=== PATIENT | female | born 1975 | race Caucasian/White ===

== ENCOUNTER 2023-04-29 14:19 | Outpatient (CLI) | payer BC, SELFPAY ==
--- NOTE | 2023-04-29 14:29 | MM_ITS ---
WS: [id number] VIEWS: MLO and CC views both breasts. 3D digital tomosynthesis is also included in this exam. No priors. Findings: There was no sign of mass, architectural distortion or suspicious calcification in either breast. Sc attered areas of fibroglandular density MM/[id number] Impression: BI-RADS: 2 benign finding FOLLOW-UP: 1 Year Follow-up This mammogram was also analyzed by the Computer Aided Detection System R2 Imag e Batch Freezer.
== END 2023-04-29 14:20 | disposition home or self-care (01) ==
LOC: RAD 14:26
PROVIDERS: PCP Family Medicine; Visit Provider Family Medicine
DX: Z12.31 Encounter for screening mammogram for malignant neoplasm of breast (principal)
CPT/HCPCS: 77063; 77067

== ENCOUNTER → 2023-12-23 15:35 | Outpatient (BNVA) | payer BC, SELFPAY | PROVIDERS: PCP Family Medicine; Referring Provider Family Medicine; Visit Provider Nurse Practitioner Women's Health | DX: N93.9 Abnormal uterine and vaginal bleeding, unspecified (principal); D25.9 Leiomyoma of uterus, unspecified; D25.0 Submucous leiomyoma of uterus | CPT/HCPCS: 85025; 88305 ==

== ENCOUNTER → 2024-01-17 13:29 | Outpatient (BNVA) | payer BC, SELFPAY | PROVIDERS: PCP Family Medicine; Visit Provider Nurse Practitioner Women's Health | DX: N93.9 Abnormal uterine and vaginal bleeding, unspecified (principal); D25.9 Leiomyoma of uterus, unspecified | CPT/HCPCS: 76830 ==

== ENCOUNTER → 2024-01-20 15:30 | Outpatient (BNVA) | payer BC, SELFPAY | PROVIDERS: PCP Family Medicine; Visit Provider Nurse Practitioner Women's Health | DX: N93.9 Abnormal uterine and vaginal bleeding, unspecified (principal) | CPT/HCPCS: 87086; 87624 ==

== ENCOUNTER 2024-05-01 08:18 | Outpatient (CLI) | payer BC, SELFPAY ==
--- NOTE | 2024-05-01 08:21 | MM_ITS ---
WS: [id number] BILATERAL SCREENING DIGITAL TOMOSYNTHESIS MAMMOGRAM WITH CAD HISTORY: SCREENING COMPARISON: 04/29/2023 Bilateral CC and MLO views with tomosynthesis and synthetic mammography submitted. Computer aided det ection analyzed. Breast composition: There are scattered areas of fibroglandular density. No suspicious masses, microc alcifications or architectural distortion. MM/[id number] IMPRESSION: BI-RADS: 1-Negative FOLLOW UP: 1 Year Follow-up
== END 2024-05-01 08:19 | disposition home or self-care (01) ==
LOC: RAD 08:18
PROVIDERS: PCP Family Medicine; Visit Provider Family Medicine
DX: Z12.31 Encounter for screening mammogram for malignant neoplasm of breast (principal); R92.323 Mammographic fibroglandular density, bilateral breasts
CPT/HCPCS: 77063; 77067

== ENCOUNTER 2024-05-23 11:12 | Observation (INO) | payer BC, SELFPAY ==
[2024-05-15 11:25] LABS: OR HCG Qualitative Urine Negative (Negative)
[2024-05-15 11:25] LABS: Basophils # 0.1 10^3/uL (0.0-0.1); Basophils % 1.3 %; Eosinophils # 0.1 10^3/uL (0.0-0.8); Eosinophils % 1.9 %; Hematocrit 41.4 % (36-47); Lymphocytes # 1.6 10^3/uL (0.8-4.8); Lymphocytes % 29.7 %; Mean Corpuscular HGB Conc 32.6 g/dL (30-55); Mean Corpuscular Hemoglobin 29.7 pg (27-33); Mean Platelet Volume 10.2 fL (7.4-10.4); Monocytes # 0.2 10^3/uL (0.2-0.9); Monocytes % 3.5 %; Neutrophils # 3.42 10^3/uL (1.8-7.7); Neutrophils % 63.4 %; Nucleated Red Blood Cells % 0 %; Platelet Count 260 10^3/cmm (157-399); Red Blood Count 4.55 10^6/uL (3.85-5.65); Red Cell Distribution Width 12.8 % (12.1-15.1); White Blood Count 5.39 10^3/uL (3.29-11.43)
[2024-05-15 11:44] LABS: Alanine Aminotransferase 12 U/L (0-33); Albumin Level 4.2 g/dL (3.5-5.2); Alkaline Phosphatase 51 U/L (35-105); Anion Gap 13.2 (5-19); Aspartate Amino Transferase 13 U/L (0-32); Blood Urea Nitrogen 11 mg/dL (6-20); Calcium 9.3 mg/dL (8.5-10.5); Carbon Dioxide 22 mmol/L (22-29); Chloride 110 mmol/L (98-107); Globulin 2.6 g/dL (1.3-4.6); Glomerular Filtration Rate 88.2 mL/min (90-130); Glucose 103 mg/dL (65-115); Osmolality Calculated 292 mOsm/kg (285-295); Potassium 4.2 mmol/L (3.5-5.1); Sodium 141 mmol/L (136-145); Total Bilirubin 0.3 mg/dL (0.15-1.2); Total Protein 6.8 g/dL (6.6-8.7)
[2024-05-15 11:52] LABS: Blood Urine 3+ (Negative); Glucose Urine UA Norm (Normal); Ketones Urine Negative (Negative); Nitrate Urine Negative (Negative); Protein Urine 1+ (Negative); Urine Appearance Cloudy (CLEAR); Urine Color Yellow (Yellow); pH Urine 7 (5-7)
[2024-05-15 11:53] LABS: Add Urine Culture? No; Add Urine Microscopic? YES; Bacteria Urine 2+ /hpf; Bilirubin Urine Neg (Negative); Leukocyte Esterase Urine 2+ (Negative); RBC Urine 25-40 /hpf (0-2); Squamous Epithelial Cell Urine 15-25 /hpf (0-5); Urobilinogen Urine Norm (Negative); WBC Urine 15-25 /hpf (0-5)
[2024-05-23] VITALS (15 sets, daily range): BP systolic 110–151; BP diastolic 63–92; PULSE 50–68; RESP 12–18; TEMP 36.2–37.1; O2SAT 96–100; BMI 33.8
--- NOTE | 2024-05-23 09:33 | W.PM.OPSUD ---
Surgery/Procedure H&P Update DATE OF PROCEDURE: May 23, 2024 DATE H&P PERFORMED: 05/15/24 H&P UPDATE INFORMATION: I have reviewed H&P completed within last 30 days, I have examined patient prior to procedure and No changes to prior documentation PREOP DIAGNOSIS: AUB, Uterine fibroids, Dysmenorrhea, pelvic pain PLANNED PROCEDURE: Operation Date: 05/23/24 10:25 Proposed Procedures p Total Vaginal Hysterectomy 70750, N93.9, D25.0(Not Applicable) - Daniele Singh MD
[2024-05-23] MEDS: scopolamine 1.5 Patch 1 PATCH TRANSDERMA (09:42)
[2024-05-23] MEDS: sodium chloride 0.9% 1,000 ML 30 ML IV (09:42)
[2024-05-23] MEDS: ceFOXitin 2,000 MG in sodium chloride 0.9% (plus) 50 ML 100 MG IV (09:56)
--- NOTE | 2024-05-23 09:58 | P.ANESASSM_ITS ---
Pre-Anesthetic Assessment Height/Weight: Height 1.6 m Weight 86.636 kg Temp Pulse Resp BP Pulse Ox O2 Del Method 98.7 F 60 18 151/92 99 Room Air 05/23/24 09:32 05/23/24 09:32 05/23/24 09:32 05/23/24 09:32 05/23/24 09:32 05/23/24 09:34 Preop Diagnosis: AUB, Uterine fibroids, Dysmenorrhea, pelvic pain Operation Date: 05/23/24 10:25 Proposed Procedures p Total Vaginal Hysterectomy 37820, N93.9, D25.0(Not Applicable) - Daniele Singh MD Familial anesthetic complications: None Was Beta Leti taken within 24 hours: N/A Was Clonidine taken within 24 hours: N/A Last intake: Intake Last Liquid Date 05/22/24 Last Liquid Time 20:00 Last Solid Date 05/22/24 Last Solid Time 17:00 Social No alcohol and No tobacco Exam alert, oriented x 3, clear to auscultation bilaterally and regular rate & rhythm Airway Mallampati: Class II Dentition: full Anesthetic Plan ASA status: 1 Anesthesia: General Risk of > 500 ml blood loss (7ml/kg in children): No Medications/Allergies Home Medications Medication Instructions Recorded Confirmed Last Taken Type ehpwurw-ljaicwdrz-zscj tablet 1 tab PO DAILY 12/23/23 05/15/24 05/22/24 History cetirizine 10 mg tablet (24Hour 10 mg PO DAILY PRN allergies 12/23/23 05/15/24 05/22/24 History Allergy) cholecalciferol (vitamin D3) 125 125 mcg PO DAILY 12/23/23 05/15/24 05/22/24 History mcg (5,000 unit) capsule multivitamin 1 tab PO DAILY 12/23/23 05/15/24 05/22/24 History psyllium husk 0.4 gram capsule 0.4 g PO DAILY 12/23/23 05/15/24 05/22/24 History (Fiber (psyllium husk)) ibuprofen 800 mg tablet 800 mg PO TID abnormal uterine 02/11/24 05/23/24 05/20/24 Rx bleeding #90 tabs norethindrone acetate 5 mg tablet 5 mg PO DAILY #60 tabs 03/14/24 05/15/24 05/20/24 Rx Allergies Allergy/AdvReac Type Severity Reaction Status Date / Time No Known Allergies Allergy Verified 05/23/24 09:15 Current Medications Generic Name Dose Route Start Last Admin Trade Name Teresa PRN Reason Stop Dose Admin Sodium Chloride 1,000 mls @ 30 mls/hr 05/23/24 09:00 05/23/24 09:42 Sodium Chloride 0.9% IV 05/24/24 08:59 30 mls/hr .Q24H KORINA Administration PFSH Anesthesia Medical History No pertinent past medical history neghx: htn,dm,thyroid,dvt/pe PCP: Dr. Frederick Surgical History History of cholecystectomy (~2001) Family History Father Heart disease Mother Hypertension Grandmother Thyroid disease Denies family history of Colon cancer Ovarian cancer Prostate cancer Diabetes Hyperlipidemia Breast cancer Uterine cancer Stroke Female Reproductive History Date of last menstrual period: 05/12/24 Data Anesthesia 05/15/24 11:10 05/15/24 11:10 Cardiac Studies: 2 No Data to Display
[2024-05-23 10:06] LABS: OR HCG Qualitative Urine Negative (Negative)
[2024-05-23] MEDS: lidocaine-epi 2% PF 1:200,000 20 mL SDV XX (10:41)
--- NOTE | 2024-05-23 11:12 | P.OP_ITS ---
Operative Report Date of procedure: May 23, 2024 Pre-op diagnosis: Abnormal uterine bleeding Uterine fibroid Dysmenorrhea Post-op diagnosis: same Procedure done: Total vaginal hysterectomy Specimens removed/disposition: Uterus Surgeon: Daniele Singh MD Estimated blood loss (mL): 20 IV fluids (mL): 700 Urine output (mL): 50 Complications: None Procedure: After informed consent and risks, benefits, indications and alternatives reviewed with the patient was taken to the operating room. The patient was placed in dorsal lithotomy position prepped, and draped in the usual sterile fashion. The pre-procedure timeout verifying the correct patient, procedure, site and side, could not requirements was performed and acknowledge by the OR t eam. A Miranda catheter was placed. A Bookwalter vaginal retractor was placed into the vagina in usual manner visualize the cervix. Cervix was grasped with a single tooth tenaculum and circumferentially infiltrated with 2% lidocaine with epinephrine. Then cervix was circumferentially incised with bovie and the bladder was dissected off the pubovesical cervical fascia anteriorly with a sponge stick and Metzenbaum scissors. The anterior peritoneal reflection was identified and the anterior cul-de-sac was entered sharply with Metzenbaum scissors. The same procedure was performed posteriorly and a posterior colpotomy was made through the posterior cul-de-sac space without difficulty and the posterior blade of the Bookwalter vaginal retractor was advanced posteriorly into the cul-de-sac. At this time, the left and right uterosacral ligaments were isolated and ligated with 0 Vicryl. The LigaSure device was placed over the uterosacral ligaments on either side and was then used in a serial fashion up through the cardinal ligaments bilaterally cross-clamped, cut, and sealed with the LigaSure device. Finally, the uterine arteries were cross-clamped, cut, sealed and ligated with the LigaSure device. Hemostasis was assured. The broad ligaments were then serially clamped, sealed and cut with the LigaSure device on both sides. Excellent hemostasis was visualized. Both cornua were clamped, sealed and cut with the LigaSure device. Then the pedicles were then suture ligated with excellent hemostasis. The uterus was excised and submitted for pathologic evaluation. No other abnormal ities were noted in the pelvic cavity. The peritoneum was then closed in a pursestring fashion with 0 Vicryl suture. The vaginal cuff angles were closed with [id number] #0 Vicryl suture on bot h sides and transfixed with the ipsilateral cardinal and uterosacral ligaments. The remainder of the vaginal cuff was closed with #0 Vicryl in a running locked fashion. Bludigo was given IV At this time, instruments were removed from the vagina at hemostasis assured. The patient was taken out of dorsal lithotomy position and awakened from the general anesthesia. The patient tolerated the procedure well and was taken to the PACU recovery room in a stable condition. Sponge, lap, needle and instruments counts were correct x3.
--- NOTE | 2024-05-23 11:19 | PC.NURSE ---
anesthesia at side to medicate
--- NOTE | 2024-05-23 11:45 | ANE.PACU2 ---
Inpatient post-anesthesia follow up: Airway intact: Yes Vital signs: Temperature 97.4 F Pulse Rate 52 Respiratory Rate 12 Blood Pressure 130/80 Pulse Oximetry 100 Oxygen Delivery Me thod Room Air Oxygen Flow Rate Fraction of Inspir ed Oxygen Hydration adequate: Yes Nausea and vomiting: No Pain level: 1 Mental status: Baseline
[2024-05-23] MEDS: dextrose 5%-lactated ringers 1,000 ML 125 ML IV (13:20)
[2024-05-23] MEDS: acetaminophen 325 mg Tablet 650 MG PO (15:35)
[2024-05-23] MEDS: docusate sodium 100 mg Capsule PO (17:21)
[2024-05-23] MEDS: ketorolac 30 mg/mL INJ IVP ×2 (17:21→22:58)
[2024-05-23] MEDS: HYDROcodone-acetaminophen 5-325 mg Tablet PO (21:16)
[2024-05-24] MEDS: dextrose 5%-lactated ringers 1,000 ML 125 ML IV (00:59)
[2024-05-24 04:00] VITALS: BP 113/72; PULSE 50; RESP 16; TEMP 36.9; O2SAT 98
[2024-05-24] MEDS: ketorolac 30 mg/mL INJ IVP (05:09)
[2024-05-24 06:13] LABS: Hematocrit 35.6 % (36-47); Mean Corpuscular HGB Conc 32.6 g/dL (30-55); Mean Corpuscular Hemoglobin 30.1 pg (27-33); Mean Corpuscular Volume 92.5 fl (85-98); Mean Platelet Volume 10.1 fL (7.4-10.4); Platelet Count 210 10^3/cmm (157-399); Red Blood Count 3.85 10^6/uL (3.85-5.65); Red Cell Distribution Width 13.1 % (12.1-15.1); White Blood Count 9.76 10^3/uL (3.29-11.43)
--- NOTE | 2024-05-24 08:22 | P.DS_ITS ---
Discharge Providers [employer] Date of Admission: 05/23/24 11:12 Date of Discharge: 05/24/24 Attending Provider at Admission: Daniele Singh MD Attending Provider at Discharge: Daniele Singh MD Primary Care Provider: Regla Frederick MD Reason for Visit Reason for Visit: N93.9 Hospital Course Hospital Course Mrs. Jaramillo 49-year-old female with a history of abnormal uterine bleeding, uterine fibroid, and dysmenorrhea, admitted for planned total vaginal hysterectomy. The procedure was performed without complications. Overnight observation was uneventful. She is afebrile hemodynamically stable postoperative day 1. Tolerating diet well. Ambulating without difficulty. She was counseled regarding pelvic rest for 6 weeks (no sex, no tampons, no vaginal douches). Return to the emergency room if any fever, increased bleeding or pain. Physical Exam Narrative: GA: Alert and oriented ?3. HEENT: WNL. Heart: Regular rate and rhythm. Lungs: Clear to auscultation bilaterally. Abdomen: Bowel sounds present. SUBGRADE TESTER: Spotting bleeding. Extremities: No edema, no cyanosis, no calves pain. Urinary Catheter Management: Miranda: Cath Placed During This Visit: yes, but has since been removed by the nurse Reason for Continuing Indwelling Catheter: Decision to DC Catheter Urinary Catheter Date of Insertion: 05/23/24 Urinary Catheter Time of Insertion: 10:26 Date Urinary Catheter Removed: 05/24/24 Time Urinary Catheter Discontinued: 05:15 History History History 3 Term 3 0 Miscarriages/Ectopic 0 Living Children 3 Discharge Data Studies Completed and Pending Pending at discharge Category Date Time Status Pathology: Surgical [PTH] Routine Pth 05/23/24 11:03 Received Laboratory Results WBC 9.76 10^3/uL (3.29-11.43) 05/24/24 05:15 RBC 3.85 10^6/uL (3.85-5.65) 05/24/24 05:15 Hgb 11.60 g/dL (11.27-16.99) 05/24/24 05:15 Hct 35.6 % (36-47) L 05/24/24 05:15 MCV 92.5 fl (85-98) 05/24/24 05:15 MCH 30.1 pg (27-33) 05/24/24 05:15 MCHC 32.6 g/dL (30-55) 05/24/24 05:15 RDW 13.1 % (12.1-15.1) 05/24/24 05:15 Plt Count 210 10^3/cmm (157-399) 05/24/24 05:15 MPV 10.1 fL (7.4-10.4) 05/24/24 05:15 Neut % (Auto) 63.4 % 05/15/24 11:10 Lymph % (Auto) 29.7 % 05/15/24 11:10 [place] % (Auto) 3.5 % 05/15/24 11:10 Eos % (Auto) 1.9 % 05/15/24 11:10 Baso % (Auto) 1.3 % 05/15/24 11:10 Neut # (Auto) 3.42 10^3/uL (1.8-7.7) 05/15/24 11:10 Lymph # (Auto) 1.6 10^3/uL (0.8-4.8) 05/15/24 11:10 [place] # (Auto) 0.2 10^3/uL (0.2-0.9) 05/15/24 11:10 Eos # (Auto) 0.1 10^3/uL (0.0-0.8) 05/15/24 11:10 Baso # (Auto) 0.1 10^3/uL (0.0-0.1) 05/15/24 11:10 Nucleated RBC % (auto) 0 % 05/15/24 11:10 Nucleated RBCs # 0.0 /100WBC 05/15/24 11:10 Sodium 141 mmol/L (136-145) 05/15/24 11:10 Potassium 4.2 mmol/L (3.5-5.1) 05/15/24 11:10 Chloride 110 mmol/L (98-107) H 05/15/24 11:10 Carbon Dioxide 22 mmol/L (22-29) 05/15/24 11:10 Anion Gap 13.2 (5-19) 05/15/24 11:10 BUN 11 mg/dL (6-20) 05/15/24 11:10 Creatinine 0.7 mg/dL (0.5-0.9) 05/15/24 11:10 GFR Calculation 88.2 mL/min (90-130) L 05/15/24 11:10 Glucose 103 mg/dL (65-115) 05/15/24 11:10 Calculated Osmolality 292 mOsm/kg (285-295) 05/15/24 11:10 Calcium 9.3 mg/dL (8.5-10.5) 05/15/24 11:10 Total Bilirubin 0.3 mg/dL (0.15-1.2) 05/15/24 11:10 AST 13 U/L (0-32) 05/15/24 11:10 ALT 12 U/L (0-33) 05/15/24 11:10 Alkaline Phosphatase 51 U/L (35-105) 05/15/24 11:10 Total Protein 6.8 g/dL (6.6-8.7) 05/15/24 11:10 Albumin 4.2 g/dL (3.5-5.2) 05/15/24 11:10 Globulin 2.6 g/dL (1.3-4.6) 05/15/24 11:10 Urine Color Yellow (Yellow) 05/15/24 10:35 Urine Appearance Cloudy (CLEAR) A 05/15/24 10:35 Urine pH 7 (5-7) 05/15/24 10:35 Ur Specific [place] 1.010 (1.005-1.030) 05/15/24 10:35 Urine Protein 1+ (Negative) H 05/15/24 10:35 Urine Glucose (UA) Norm (Normal) 05/15/24 10:35 Urine Ketones Negative (Negative) 05/15/24 10:35 Urine Blood 3+ (Negative) H 05/15/24 10:35 Urine Nitrate Negative (Negative) 05/15/24 10:35 Urine Bilirubin Neg (Negative) 05/15/24 10:35 Urine Urobilinogen Norm mg/dL (Negative) 05/15/24 10:35 Ur Leukocyte Esterase 2+ (Negative) H 05/15/24 10:35 Urine RBC 25-40 /hpf (0-2) H 05/15/24 10:35 Urine WBC 15-25 /hpf (0-5) H 05/15/24 10:35 Ur Squamous Epith Cells 15-25 /hpf (0-5) H 05/15/24 10:35 Amorphous Sediment Not Reportable 05/15/24 10:35 Urine Bacteria 2+ /hpf (NONE) H 05/15/24 10:35 Urine HCG, Qual Negative (Negative) 05/23/24 10:01 Blood Type A Negative 05/23/24 09:40 Rho(D) Type Rh negative 05/23/24 09:40 Antibody Screen Negative 05/23/24 09:40 Vitals Last Vital Signs Temp 98.4 F 05/24/24 04:00 Pulse 50 L 05/24/24 04:00 Resp 16 05/24/24 04:00 BP 113/72 05/24/24 04:00 Pulse Ox 98 05/24/24 04:00 O2 Del Method Room Air 05/24/24 04:00 Results Labs OB ([facility]): Blood Type A Negative 05/23/24 Antibody Screen Negative 05/23/24 Hct 35.6 % (36-47) L 05/24/24 Hgb 11.60 g/dL (11.27-16.99) 05/24/24 Rho(D) Type Rh negative 05/23/24 Plt Count 210 10^3/cmm (157-399) 05/24/24 Micro Urine Specimen 01/20/24 Pap Smear Interpret See note 01/20/24 Discharge Plan Discharge Patient Disposition: Home Condition: Stable Prescriptions: New hydrocodone-acetaminophen 5-325 mg tablet 1 tab PO Q4H PRN (Reason: pain) Qty: 20 0RF ibuprofen 800 mg tablet 800 mg PO TID PRN (Reason: pain) Qty: 60 0RF acetaminophen 325 mg capsule 325 mg PO Q4H PRN (Reason: fever or pain) Qty: 60 0RF Continued ibuprofen 800 mg tablet 800 mg PO TID Qty: 90 1RF psyllium husk [Fiber (psyllium husk)] 0.4 gram capsule 0.4 g PO DAILY okbinvd-lqwakqxsx-oqwk Tablet 1 tab PO DAILY cholecalciferol (vitamin D3) 125 mcg (5,000 unit) capsule 125 mcg PO DAILY multivitamin Tablet 1 tab PO DAILY cetirizine [24Hour Allergy] 10 mg tablet 10 mg PO DAILY PRN (Reason: allergies) norethindrone acetate 5 mg tablet 5 mg PO DAILY Qty: 60 0RF Discharge Orders: Discharge Order (Routine); Ordered 05/24/24 Ordered By: Daniele Singh Referrals: Daniele Singh MD [Physician] - 2 weeks Discharge Diet: Usual diet Discharge Activity: Limit activity as instructed Patient Instructions: Acute Wound Care (DC), Vaginal Hysterectomy (GEN), Opioid Safety, Post Anesthesia Care Activity Restrictions/Additional Instructions: 1. Please call [facility] on next working day to make your post-operative appointment in 2 weeks. 2. Please stay home until you come back to the clinic on first post- hospatilization check up. 3. Please follow instructions on your medications CAREFULLY. 4. If you have abdominal incision, do not cover it unless dressing is necessary because of drainage. OK to shower, but avoid bath. Leave steri-strips until they fall off. If they are still on one week after surgery, you may remove them. 5. If you had vaginal surgery or vaginal repair, Dr. Singh may instruct you to take SITZ bath. 6. Yellow, blood tinged odorous vaginal discharge is usually normal after hysterectomy or vaginal surgeries. 7. No SEXUAL INTERCOURSE, tampons, or douches until you are completely released from the post-operative care. 8. Avoid constipation by eating right and maybe using some Metamucil or Milk of Magnesia. 9. All prescription refills are given during the working hours. Please do no wait till it runs out. Call the clinic at [phone] before your medication runs out. The clinic will get in touch with your doctor to prescribe medications if necessary. 10. Please remain within 40 mile radius from our hospital because emergencies do happen now and then during the post-operative period. 11. If you have stairs at home, take one step at a time slowly and minimize the number of trips. It helps to stay in one floor for the next few days. No lift ing except what you can lift by one hand until you are released from the post- operative care. 12. Driving is discouraged until you are well healed. It may be 3-4 weeks before you feel strong enough to drive. You should be able to turn and look through the rear window without pain and you should be able to push the brake pedal very hard without pain before you drive. No fast rules, but SAFETY should be your primary concern. DO NOT drive if you are on sedating medications such as narcotics. 13. Call the clinic (during working hours) to make urgent appointment or go to the Emergency room, if any of the following occurs: i. Vaginal bleeding becomes heavy, more than a period. ii. Incision becomes red and sore, or drains pus. iii. Your TEMPERATURE is over 100.4F or you have chill. iv. IV site becomes red and swollen (a little ``knot?? is usually OK) v. Persistent nausea and vomiting vi. Persistent constipation or diarrhea vii. Rash or allergic reaction to medications. Discharge Attestations [employer] Time Spent in Discharge Care*: greater than 30 min Coding Level of Care Code Acute Code for Chg Fwd
[2024-05-24] MEDS: docusate sodium 100 mg Capsule PO (09:14)
[2024-05-24 09:52] VITALS: BP 113/74; PULSE 60; RESP 18; TEMP 36.9
== END 2024-05-24 09:50 | disposition home or self-care (01) ==
LOC: OBGYN 11:13
PROVIDERS: Anesthesiology; Admitting Provider Obstetrics & Gynecology; PCP Family Medicine; Visit Provider Obstetrics & Gynecology
PROC: (CPT 58260; principal; 2024-05-23 10:15)
DX: N93.9 Abnormal uterine and vaginal bleeding, unspecified (principal); D25.9 Leiomyoma of uterus, unspecified; N94.6 Dysmenorrhea, unspecified; N72 Inflammatory disease of cervix uteri
CPT/HCPCS: 58260; 36415; 80053; 81001; 81025; 85025; 85027; 86850; 86900; 88307; G0378; J0694; J1100; J1200; J1885; J2250; J2405; J2704; J2710; J3010; J3490; J7030; J7121

== ENCOUNTER 2025-05-02 08:05 | Outpatient (CLI) | payer BC, SELFPAY ==
--- NOTE | 2025-05-02 08:11 | MM_ITS ---
WS: [id number] BILATERAL SCREENING DIGITAL TOMOSYNTHESIS MAMMOGRAM WITH CAD HISTORY: SCREENING COMPARISON: 05/01/2024, 04/29/2023, Bilateral CC and MLO views with tomosynthesis and synthetic mammography submitted. Computer aided detection analyzed. Breast composition: There are scattered areas of fibroglandular density. No suspicious masses, microcalcifications or architectural distortion. MM/MM scr BI tomosynthesis [id number] IMPRESSION: BI-RADS: 1 - Negative. FOLLOW UP: 1 Year Follow-up
== END 2025-05-02 08:06 | disposition home or self-care (01) ==
PROVIDERS: PCP Family Medicine; Visit Provider Family Medicine
DX: Z12.31 Encounter for screening mammogram for malignant neoplasm of breast (principal); R92.323 Mammographic fibroglandular density, bilateral breasts
CPT/HCPCS: 77063; 77067